=== PATIENT | female | born 2000 ===

== ENCOUNTER 2022-04-16 16:39 | Emergency (ER) | payer SELFPAY ==
[2022-04-16 17:02] VITALS: BP 114/75
[2022-04-16] MEDS ORDERED: ONDANSETRON 4 MG ODT TAB ONE (17:03)
[2022-04-16] MEDS ORDERED: ACETAMINOPHEN 325 MG TAB ONE (17:03)
[2022-04-16] MEDS ORDERED: ACETAMINOPHEN 325 MG TAB PO ONE (17:04)
--- NOTE | 2022-04-16 17:04 | Event Note ---
ED Screening Note Date of service: 04/16/22 Time: 17:04 ED Screening Note: This initial assessment/diagnostic orders/clinical plan/treatment(s) is/are subject to change based on patients health status, clinical progression and re- assessment by fellow clinical providers in the ED. Further treatment and workup at subsequent clinical providers discretion. Patient/guardian urged not to elope from the ED as their condition may be serious if not clinically assessed and managed. Initial orders include:
[2022-04-16] MEDS ORDERED: ONDANSETRON 4 MG ODT TAB PO ONE (17:05)
--- NOTE | 2022-04-16 17:12 | Event Note ---
ED Screening Note Date of service: 04/16/22 Time: 17:08 ED Screening Note: This initial assessment/diagnostic orders/clinical plan/treatment(s) is/are subject to change based on patients health status, clinical progression and re- assessment by fellow clinical providers in the ED. Further treatment and workup at subsequent clinical providers discretion. Patient/guardian urged not to elope from the ED as their condition may be serious if not clinically assessed and managed. Patient with flu like symptoms for 36hrs. +Myalgias and fever. + sore throat, no rhinorrhea or cough. No nausea, vomiting or diarrhea. Initial orders include: Acetaminophen and ondansetron given in triage. My Active Orders 04/16/22 17:01 Rapid FLU Stat 04/16/22 17:06 Rapid Strep Stat
== END 2022-04-16 23:47 | disposition left against medical advice (07) ==
LOC: ED 16:39
DX: R50.9 Fever, unspecified (principal); R11.10 Vomiting, unspecified; Z53.21 Procedure and treatment not carried out due to patient leaving prior to being seen by health care provider
CPT/HCPCS: J3490; Q0162